=== PATIENT | female | born 1995 | race Caucasian/White ===

== ENCOUNTER 2016-12-15 10:56 | Emergency (ER) | payer MEDICAID, OTHER ==
[~2016-12-15] VITALS: Ht 165.1 cm; Wt 81.9 kg
[2016-12-15 10:58] VITALS: BP 119/84; PULSE 77; RESP 16; TEMP 98.3; O2SAT 99
[2016-12-15] MEDS ORDERED: BENZ100 PO (11:41)
--- NOTE | 2016-12-15 11:41 | PD ---
HPI Chief Complaint: Cold / Flu Symptoms Time Seen by Provider: 11:35 Travel History International Travel<30 days: No Contact w/Intl Traveler<30days: No Traveled to known affect area: No History of Present Illness HPI 21-year-old female presents to the emergency room for evaluation of nonproductive cough, sore throat, and congestion for the past 3 days. Patient states she had a normal cold until yesterday when she developed pain while coughing. Pain is mostly located in her throat and upper chest. She was concerned that she may have bronchitis. She has been taking [id number] DayQuil but no other medication for her symptoms. There is been no history of fever, chills, nausea, vomiting. No chronic medical conditions or occasions. Mom is sick with similar symptoms. PFSH Past Medical History Medical History: Denies Significant Hx Autoimmune Disease: No Anxiety: No Depression: No Cardiovascular Problems: No Diminished Hearing: No Genitourinary: No Musculoskeletal: No Neurologic: No Psychiatric: No Respiratory: No Immunizations Current: Yes ?: Not : 2 Para: 1 Past Surgical History Section: Yes (x1) Gynecologic Surgery: Yes ( ) Other Surgery: No Social History Alcohol Use: No Tobacco Use: Yes (10 CIGG/DAY) Substance Use: No (denies) Allergies-Medications (Allergen,Severity, Reaction): Coded Allergies: Penicillin (Verified Allergy, Mild, HIVES, 12/15/16) Codeine (Verified Adverse Reaction, Mild, VERY SICK-VOMITING, 12/15/16) Reported Meds & Prescriptions Reported Meds & Active Scripts Active No Active Prescriptions or Reported Medications Review of Systems Except as stated in HPI: all other systems reviewed are Neg Physical Exam Narrative GENERAL: Well-nourished, well-developed female in no acute distress. Afebrile. Ambulatory. SKIN: Focused skin assessment warm/dry. HEAD: Normocephalic. ENT: Mucosa pink and moist. Mildly erythematous without exudates. No uvular edema. No uvular, palatal, or tonsillar deviation. Airway patent. Nasal turbinates appear normal without nasal blood, purulent drainage or septal hematoma. EARS: Bilateral pinnae and external canals appear within normal limits. Bilateral tympanic membranes without erythema, dullness or perforation. EYES: No scleral icterus. No injection or drainage. NECK: Supple, trachea midline. No JVD or lymphadenopathy. CARDIOVASCULAR: Regular rate and rhythm without murmurs, gallops, or rubs. RESPIRATORY: Breath sounds equal bilaterally. No accessory muscle use. No crackles, rales, wheezes, or rhonchi. Data Data Last Documented VS Vital Signs Date Time Temp Pulse Resp B/P Pulse Ox O2 Delivery O2 Flow Rate FiO2 12/15/16 10:58 98.3 77 16 119/84 99 MDM Medical Decision Making Medical Screen Exam Complete: Yes Emergency Medical Condition: Yes Medical Record Reviewed: Yes Differential Diagnosis Upper respiratory infection versus bronchitis versus pneumonia versus streptococcal pharyngitis Narrative Course 21-year-old female presents to the emergency room for evaluation of nonproductive cough, congestion, and sore throat for the past 3 days. No history of fever. Mother is sick with similar symptoms. Resting comfortably in bed. Physical exam is unremarkable. No evidence of bacterial infection in the ears, nose, throat, or lungs. Likely viral upper respiratory infection. Patient given prescription for Tessalon Perles and told to follow up with her primary care physician or return for worsening symptoms. She understands and agrees to plan. Diagnosis Primary Impression: Upper respiratory infection Qualified Code: J06.9 - Viral upper respiratory tract infection Referrals: Primary Care Physician Patient Instructions: General Instructions, Upper Respiratory Infection (ED) Additional Instructions: Rest and drink plenty of fluids. Use Tessalon Perles as directed, as needed for cough. Continue [id number] medications as directed for symptoms.\ Follow-up with a primary care physician. Return to the emergency room for worsening symptoms. Med/Other Pt SpecificInfo: Prescription(s) given Scripts No Active Prescriptions or Reported Meds Disposition: 01 DISCHARGE HOME Condition: Stable Joselyn Laura December 15, 2016 11:41
== END 2016-12-15 11:51 | disposition home or self-care (01) ==
LOC: PHEFT 10:56
DX: J06.9 Acute upper respiratory infection, unspecified (principal); F17.210 Nicotine dependence, cigarettes, uncomplicated; Z88.5 Allergy status to narcotic agent; Z88.0 Allergy status to penicillin
CPT/HCPCS: 99283

== ENCOUNTER 2016-12-22 23:04 | Emergency (ER) | payer MEDICAID, OTHER ==
[~2016-12-22] VITALS: Ht 165.1 cm; Wt 83.5 kg
[~2016-12-22 23:04] MED LIST: BENZ100 PO
[2016-12-22 23:07] VITALS: BP 129/93; PULSE 129; RESP 16; TEMP 99; O2SAT 97
[2016-12-23 00:05] VITALS: BP 129/93; PULSE 112; RESP 18; TEMP 99; O2SAT 97
--- NOTE | 2016-12-23 00:22 | PD ---
HPI Chief Complaint: Cold / Flu Symptoms Time Seen by Provider: 00:17 Travel History International Travel<30 days: No Contact w/Intl Traveler<30days: No Traveled to known affect area: No History of Present Illness HPI 21-year-old female presents to the emergency department for complaint of sore throat cough congestion yellow-green sinus drainage, productive of green sputum subjective fever and chills taking kqha-ecj-bflxphr medications without symptomatic relief. Patient states she was seen 2 weeks ago in the emergency department diagnosis of viral syndrome. Patient reports symptoms have worsened and presents now for reevaluation. Patient states she has use prescription Tessalon Perles provided to her and her last visit that they've provided no relief. No report of shortness of breath or pleuritic chest pain. No nausea no vomiting no abdominal pain. Episodes of loose stool but no diarrhea no dysuria frequency urgency or flank pain. No report of joint pain swelling or skin rash. Patient's last period was normal for her and denies . Overall body 8 9/10 in intensity. Patient took 800 mg of ibuprofen just prior to arrival to the emergency department. [facility] Past Medical History Narrative Medical ; immunizations current; tobacco use; nursing notes reviewed Autoimmune Disease: No Anxiety: No Depression: No Cardiovascular Problems: No Diminished Hearing: No Genitourinary: No Musculoskeletal: No Neurologic: No Psychiatric: No Respiratory: No Immunizations Current: Yes Tetanus Vaccination: < 5 Years Influenza Vaccination: Yes ?: Not LMP: 2 WEEKS AGO : 2 Para: 1 Past Surgical History Section: Yes (x1) Gynecologic Surgery: Yes ( ) Other Surgery: No Social History Alcohol Use: No Tobacco Use: Yes (10 CIGG/DAY) Substance Use: No (denies) Allergies-Medications (Allergen,Severity, Reaction): Coded Allergies: Penicillin (Verified Allergy, Mild, HIVES, 12/23/16) Codeine (Verified Adverse Reaction, Mild, VERY SICK-VOMITING, 12/23/16) Reported Meds & Prescriptions Reported Meds & Active Scripts Active Zithromax Z-Randy (Azithromycin) 250 Mg Dspk 250 Mg PO DIRECTED 500 MG (2 tabs) day 1, then 1 tab days 2-5. Tessalon Perles (Benzonatate) 100 Mg Cap 100 Mg PO TID PRN 7 Days Review of Systems Except as stated in HPI: all other systems reviewed are Neg General / Constitutional: Positive: Fever, Chills HENT: Positive: Headaches, Sore Throat, Rhinorrhea, Congestion (subjective subjective) Cardiovascular: No: Chest Pain or Discomfort Respiratory: Positive: Cough, No: Shortness of Breath, Wheezing Gastrointestinal: Positive: Nausea, Diarrhea (occasional loose stool), No: Vomiting, Abdominal Pain Genitourinary: No: Dysuria, Decreased Urinary Output Musculoskeletal: Positive: Myalgias, Arthralgias Skin: No Rash Neurologic: No: Weakness Psychiatric: No: Anxiety Hematologic/Lymphatic: No: Lymph Node Enlargement Physical Exam Narrative GENERAL: Well-developed well-nourished female in no acute distress no respiratory distress; intermittent congested cough SKIN: Warm and dry. HEAD: Normocephalic. EYES: No scleral icterus. No injection or drainage. ENT: Mucous membranes moist posterior pharynx scant exudative change posterior pharyngeal drainage noted; tympanic membranes no redness dullness or loss of landmarks. Sinuses mild tenderness to percussion over the maxillary sinuses. NECK: Supple, trachea midline. No JVD or lymphadenopathy. Supple no meningismus no nuchal rigidity. CARDIOVASCULAR: Regular rate and rhythm without murmurs, gallops, or rubs. RESPIRATORY: Breath sounds equal bilaterally. No accessory muscle use. GASTROINTESTINAL: Abdomen soft, non-tender, nondistended. MUSCULOSKELETAL: No cyanosis, or edema. BACK: Nontender without obvious deformity. No CVA tenderness. Data Data Last Documented VS Vital Signs Date Time Temp Pulse Resp B/P Pulse Ox O2 Delivery O2 Flow Rate FiO2 12/23/16 01:24 98 18 116/70 97 12/23/16 00:08 Room Air 12/23/16 00:05 99.0 Orders Group A Rapid Strep Screen (12/23/16 00:17) Azithromycin (Zithromax) (12/23/16 00:30) Strep Culture (Group A) (12/23/16 00:26) MDM Medical Decision Making Medical Screen Exam Complete: Yes Emergency Medical Condition: Yes Medical Record Reviewed: Yes Interpretation(s) RSA: negative Differential Diagnosis Febrile illness, viral syndrome, sinusitis, pharyngitis, bronchitis, pneumonia; patient is nontoxic in appearance unlikely meningitis Narrative Course Patient has just taken a milligrams ibuprofen prior to arrival to the emergency department; patient is presently afebrile patient is noted to have tachycardia in triage sitting at bedside and auscultating heart sounds heart rate is 96. Rapid strep antigen and specimen collected. Patient given first dose of oral antibiotic in the emergency department. Rapid strep antigen is negative. Patient given first dose of oral antibiotic in the emergency department and tolerated it well. Patient is stable for outpatient management. Diagnosis Primary Impression: Upper respiratory infection Additional Impression: Sinusitis Referrals: Primary Care Physician call for appointment Patient Instructions: General Instructions Additional Instructions: Increase fluid hydration Take acetaminophen/Tylenol every 4 hours for fever 100.4F or greater; may take ibuprofen/Advil/Motrin 600 mg as often as every 6 hours or 800 mg as often as every 8 hours for fever 100.4F or greater or for pain associated with inflammation Follow-up with primary care provider Return to the emergency department for any concerns or change in condition No work times one day Complete course of antibiotic as prescribed Med/Other Pt SpecificInfo: Prescription(s) given Scripts Azithromycin (Zithromax Z-Randy)250 Mg [id number] Mg PO DIRECTED #1 DSPK Ref 0 500 MG (2 tabs) day 1, then 1 tab days 2-5. Prov:Nu Butler MD 12/23/16 Disposition: 01 DISCHARGE HOME Condition: Stable Nu Butler MD December 23, 2016 00:21
[2016-12-23] MEDS ORDERED: AZITHROMYCIN 250 MG TAB PO ONE (00:30)
[2016-12-23] MEDS ORDERED: ZITHTAB PO (01:06)
[2016-12-23 01:24] VITALS: BP 116/70
== END 2016-12-23 01:26 | disposition home or self-care (01) ==
LOC: PHED 23:04
DX: J06.9 Acute upper respiratory infection, unspecified (principal); J32.9 Chronic sinusitis, unspecified; R00.0 Tachycardia, unspecified; Z72.0 Tobacco use
CPT/HCPCS: 87081; 87880; 99283